=== PATIENT | male | born 1995 | race Caucasian/White ===

== ENCOUNTER 2018-11-26 15:30 | Outpatient (RCR) | payer BC, SELFPAY ==
--- NOTE | 2018-11-19 11:02 | [facility]H.PTOPEV ---
PT Outpatient Evaluation Rehab PT Outpatient Evaluation Start: 11/19/18 10:54 Freq: Status: Active Protocol: Document 11/19/18 10:54 JOVANI (Rec: 11/19/18 11:02 JOVANI [id number]) Electronically Signed By Zurdo Ledbetter, PT 11/19/18 10:54 Outpatient Therapy Subjective History Subjective History Pt reports localized LBP beginning in fall, 'I think it could have been from a lifting injury'. Pt reports improved LBP w/skilled P.T. in , however, pt reports exacerbation over the last 4- 5 days. Pt reports midline LBP with referred into L lumbar paraspinals, no radicular s/s. Chief Complaint Pain,Spasms Symptom Type Ache,Sharp,Dull Symptoms Relieved By Heat,Activity Symptoms Aggravated By Sitting Prior Functional Limitations None Current Functional Limitations Sitting,Bending/Stooping Symptom Description Constant but Variable Level of pain today (0-10) 1 Pain scale - at its best (0-10) 1 Pain scale - at its worst (0-10) 7 Lumbopelvic Eval Posture Thoracic Spine Posture Standing Position Neutral Lumbar Spine Posture Standing Position Neutral Assistive device Assistive Devices None / NA Gait Observation General Gait Pattern Observation No Deviations/Normal Palapation tenderness right lumbar spinal tenderness Yes: 1/4 paraspinal tenderness Yes: 1-2/4 left lumbar spinal tenderness Yes: 2-3/4 paraspinal tenderness Yes: 3/4 Lumbar/Sacral Palpation Findings Tenderness,Spasm,Trigger Point ,Muscle Guarding Accessory Movement L-spine Vertebrae Accessory Movements Central P/A [place] that Elicit Symptoms L3 left L4 left L5 left Range of Motion Lumbar Spine Active Flexion Range of 0-90 Motion (degrees) Lumbar Spine Active Extension Range of 0-30 Motion (degrees) Left Lumbar Spine Lateral Flexion Active 0-30 Range of Motion (degrees) Right Lumbar Spine Lateral Flexion 0-30 Active Range of Motion (degrees) Lumbar Spine ROM Limitations Soft Tissue Tightness,Pain Manual Muscle Test Bilateral Knee Extension Strength Grade 5 Normal Knee Flexion Strength Grade 5 Normal Hip Flexion Strength Grade 5 Normal Extensor Hallucis Longus Strength Grade 5 Normal Ankle Dorsiflexion Strength Grade 5 Normal Gastronemius/Soleus Strength Grade 5 Normal DTR Rt Patellar 1+ Lt Patellar
== END 2018-11-26 15:35 | disposition home or self-care (01) ==
LOC: PT 15:30
PROVIDERS: Visit Provider Family Medicine
DX: M54.5 Low back pain (principal)
CPT/HCPCS: 97010; 97014; 97110; 97140; 97163; G0283